=== PATIENT | female | born 1970 | race Caucasian/White ===

== ENCOUNTER 2017-09-14 16:14 | Emergency (ER) | payer OTHER ==
[2017-09-14 18:45] VITALS: BP 154/80
--- NOTE | 2017-09-14 19:01 | UC ---
Back Pain HPI - HPI Summary HPI Summary: DID A NEW WORKOUT ROUTINE SEVERAL DAYS AGO THEN DEVELOPED RIGHT LOW BACK PAIN RADIATING DOWN FRONT OF RIGHT LEG. PAIN IS BETTER BUT NOW HAS PROGRESSIVE NUMBNESS IN RIGHT INGUINAL REGION. NO LOSS OF BOWEL OR BLADDER CONTROL. DENIES WEAKNESS. - History of Current Complaint Chief Complaint: UCBackPain Stated Complaint: HIP AND BACK PAIN Time Seen by Provider: 09/14/17 18:44 Hx Obtained From: Patient Hx Last Menstrual Period: 12/23/13 Onset/Duration: Gradual Onset, Lasting Days, Still Present Timing: Constant Severity Initially: Moderate Severity Currently: Moderate Pain Intensity: 3 Pain Scale Used: 0-10 Numeric Back Pain: Is Discrete @ - RIGHT LOW BACK Character: Sharp Aggravating Factor(s): Movement Alleviating Factor(s): Nothing Associated Signs And Symptoms: Positive: Numbness. Negative: Bladder Incontinence, Bowel Incontinence - Allergies/Home Medications Allergies/Adverse Reactions: Allergies Allergy/AdvReac Type Severity Reaction Status Date / Time No Known Allergies Allergy Verified 09/14/17 18:41 Home Medications: Home Medications Ibuprofen TAB* [Advil TAB*] 400 mg PO DAILY 09/14/17 [History Confirmed 09/14/17 ] PMH/Surg Hx/FS Hx/Imm Hx Previously Healthy: Yes - Surgical History Surgical History: None Surgery Procedure, Year, and Place: LASER CERVICAL PROCEDURE - Family History Known Family History: Positive: Hypertension - Social History Alcohol Use: Occasionally Substance Use Type: None Smoking Status (MU): Never Smoked Tobacco Review of Systems Constitutional: Negative Skin: Negative Respiratory: Negative Cardiovascular: Negative Gastrointestinal: Negative Genitourinary: Negative Musculoskeletal: Myalgia Neurological: Numbness All Other Systems Reviewed And Are Negative: Yes Physical Exam Triage Information Reviewed: Yes Appearance: Well-Appearing, Well-Nourished, Pain Distress - MOD Vital Signs: Initial Vital Signs Temp 99.1 F 09/14/17 18:42 Pulse 78 09/14/17 18:42 Resp 16 09/14/17 18:42 BP 154/80 09/14/17 18:42 Pulse Ox 100 09/14/17 18:42 Vital Signs Reviewed: Yes Eyes: Positive: Conjunctiva Clear ENT: Positive: Hearing grossly normal Neck: Positive: Supple Respiratory: Positive: No respiratory distress, No accessory muscle use Cardiovascular: Positive: Pulses Normal Abdomen Description: Positive: Soft Musculoskeletal: Positive: No Edema Neurological: Positive: Alert, Other: - NO FOOT DROP, 5/5 STRENGTH Psychological: Positive: Age Appropriate Behavior Skin: Negative: rashes Back Pain Course/Dx - Course Course Of Treatment: GIVEN PT REPORT OF PROGRESSIVE NUMBNESS IN RIGHT INGUINAL REGION AND RIGHT LOW BACK PAIN FOLLOWING UNUSUAL PHYSICAL ACTIVITY HAVE ADVISED ER FOR FURTHER EVALUATION. - Differential Dx/Diagnosis Provider Diagnoses: LOW BACK PAIN/RADICULOPATHY Discharge - Discharge Plan Condition: Stable Disposition: OTHER Discharge Disposition Comment[place] [facility] [place] Patient Education Materials: Low Back Strain (ED), Lumbar Radiculopathy (ED) Referrals: Akiko Cyr MD [Primary Care Provider] - If Needed Additional Instructions: CONCERN FOR DANGEROUS IMPINGEMENT OF LUMBAR SPINAL NERVES GIVEN YOUR PROGRESSIVE NUMBNESS IN THE INGUINAL REGION. GO DIRECTLY TO THE ER FROM HERE FOR FURTHER EVALUATION.
== END 2017-09-14 19:13 ==
LOC: UCEAST 16:14
DX: M54.5 Low back pain (principal); M54.10 Radiculopathy, site unspecified
CPT/HCPCS: 99201; G0463

== ENCOUNTER → 2017-09-14 19:25 | Emergency (ER) | payer OTHER ==
[~2017-09-14 19:25] MED LIST: Cyclobenzaprine TAB* 10 MG PO ONE; Ibuprofen TAB* 600 MG ONE; Ibuprofen TAB* 600 MG PO ONE
[2017-09-14 19:31] VITALS: BP 175/103
--- NOTE | 2017-09-14 20:55 | ED ---
Back Pain - HPI Summary HPI Summary: 47F presents with back pain for a couple days. It started after she did some stretching. She states over the past two days she developed pain into the right leg but today developed numbness into inguinal area on right side. no loss of bowel or bladder control. no weakness. has been taking advil with some relief. no fever. no history of IV drug use. no instability with walking. numbness is only on the right side of groin. She was seen at and transferred here. nothing makes it worst. advil makes it better. She denies any history of back pain. She is being follow up her primary who was going to give a referral to PT. - History of Current Complaint Chief Complaint: EDBackInjuryPain Stated Complaint: RT BACK AND HIP PAIN Time Seen by Provider: 09/14/17 20:26 Hx Last Menstrual Period: 12/23/13 Pain Intensity: 4 - Allergies/Home Medications Allergies/Adverse Reactions: Allergies Allergy/AdvReac Type Severity Reaction Status Date / Time No Known Allergies Allergy Verified 09/14/17 18:41 PMH/Surg Hx/FS Hx/Imm Hx Endocrine/Hematology History: Denies: Hx Diabetes, Hx Thyroid Disease Cardiovascular History: Denies: Hx Hypertension, Hx Pacemaker/ICD Respiratory History: Denies: Hx Asthma, Hx Chronic Obstructive Pulmonary Disease (COPD) GI History: Denies: Hx Ulcer Sensory History: Denies: Hx Hearing Aid Psychiatric History: Denies: Hx Panic Disorder - Surgical History Surgery Procedure, Year, and Place: LASER CERVICAL PROCEDURE - Immunization History Date of Tetanus Vaccine: unknown Date of Influenza Vaccine: no Infectious Disease History: No Infectious Disease History: Denies: Hx Clostridium Difficile, Hx Hepatitis - in past after mono diagnosis , Hx Human Immunodeficiency Virus (HIV), Hx of Known/Suspected MRSA, Hx Shingles , Hx Tuberculosis, Hx Known/Suspected VRE, Hx Known/Suspected VRSA, History Other Infectious Disease, Traveled Outside the [place] in Last 30 Days - Family History Known Family History: Positive: Hypertension - Social History Alcohol Use: Occasionally Substance Use Type: Reports: None Smoking Status (MU): Never Smoked Tobacco Review of Systems Negative: Fever Negative: Chest Pain Negative: Shortness Of Breath Negative: incontinence Positive: Myalgia - back pain All Other Systems Reviewed And Are Negative: Yes Physical Exam Triage Information Reviewed: Yes Vital Signs On Initial Exam: Initial Vitals Temp Pulse Resp BP Pulse Ox 98.6 F 80 16 175/103 100 09/14/17 19:28 09/14/17 19:28 09/14/17 19:28 09/14/17 19:28 09/14/17 19:28 Vital Signs Reviewed: Yes Appearance: Positive: Well-Appearing Skin: Positive: Warm, Dry Head/Face: Positive: Normal Head/Face Inspection Eyes: Positive: Normal, Conjunctiva Clear Respiratory/Lung Sounds: Positive: Clear to Auscultation, Breath Sounds Present Cardiovascular: Positive: Normal, RRR Musculoskeletal: Positive: Strength/ROM Intact - back, legs, Other - good pulses , neg SLR, tenderness lower back, sensation grossly intact Neurological: Positive: Reflexes Intact - patella, achilles, Normal Gait, Other - able to heel and toe walk. Negative: Babinski Bilateral - neg Psychiatric: Positive: Normal - [place] Coma Scale Coma Scale Total: 15 Diagnostics - Vital Signs Vital Signs Temp Pulse Resp BP Pulse Ox 09/14/17 19:28 98.6 F 80 16 175/103 100 - Laboratory Lab Statement: Any lab studies that have been ordered have been reviewed, and results considered in the medical decision making process. - CT back CT Interpretation: No Acute Changes - IMPRESSION: NO ACUTE CT FINDINGS. MINOR CIRCUMFERENTIAL BULGING AT THE LOWER [address] Interpretation Completed By: Radiologist Back Pain Course/Dx - Course Course Of Treatment: 47F presents with back pain for a couple days. It started after she did some stretching. She states over the past two days she developed pain into the right leg but today developed numbness into inguinal area on right side. no loss of bowel or bladder control. no weakness. has been taking advil with some relief. no fever. no history of IV drug use. no instability with walking. numbness is only on the right side of groin. She was seen at and transferred here. nothing makes it worst. advil makes it better. She denies any history of back pain. She is being follow up her primary who was going to give a referral to PT. on exam tenderness lower back. neg SLR, good pulses, neg babskini. patella and achiles intact. sensation grossly intact. patient refused rectal. patient refused MRI even after discussion of benefits. CT no acute findings. patient understand and agrees with plan. - Diagnoses Provider Diagnoses: Back pain Discharge - Discharge Plan Condition: Good Disposition: HOME Prescriptions: Cyclobenzaprine TAB* [Flexeril 10 MG TAB*] 10 mg PO TID PRN #15 tab PRN Reason: Pain Patient Education Materials: Back Pain (ED) Referrals: Akiko Cyr MD [Primary Care Provider] - [facility] [place] [Medical Doctor] - Additional Instructions: Take muscle relaxers three times a day Use ibuprofen or Tylenol for pain every 6 hours ice/heat area, move as much as possible Follow up with primary within 5 days Return to ED if develop any new or worsening symptoms
--- NOTE | 2017-09-14 21:17 | RAD ---
INDICATION: Back pain COMPARISON: None TECHNIQUE: Noncontrast axial source images was performed from the thoracolumbar junction to the sacrum. Coronal and and sagittal reformatted images were generated. FINDINGS: Vertebrae: There is no fracture or acute focal bony lesion. Alignment: The lumbar vertebrae are normally aligned. Central Canal: There are no significant CT abnormalities of the central canal or foramina. MR imaging is a more sensitive method to evaluate the canal and foramina. Intervertebral disc spaces: The disc spaces are maintained. There is minor circumferential bulging at the lower 3 lumbar levels. Soft tissues: The paravertebral soft tissues are normal. Other: None IMPRESSION: NO ACUTE CT FINDINGS. MINOR CIRCUMFERENTIAL BULGING AT THE LOWER 3 LUMBAR LEVELS
== END | disposition home or self-care (01) ==
LOC: ED 19:25
DX: M54.9 Dorsalgia, unspecified (principal)
CPT/HCPCS: 72131; 99282; A9270-GY

== ENCOUNTER 2018-08-08 10:45 | Emergency (ER) | payer BC, OTHER ==
--- NOTE | 2018-08-08 11:18 | ED ---
Abdominal Pain/Female - HPI Summary HPI Summary: Patient is a 48 y/o F w/ c/o LLQ abdominal pain onsetting last night at around 2200. Pain is described as sharp and is noted to radiate to chest and LUE intermittently and briefly. She also notes palpitations and some tingling/ numbness at LUE. Patient reports that when lying flat, abdominal pain is across her entire lower abdomen. Patient states that Sx resolved slightly today. However, as abdominal pain was still present, patient called convenient care and states they suggested she come to ED. In the room, patient states that she is not having chest pain. LLQ pain and LUE tingling is still present. However, she believes tingling could be due to anxiety. She reports some nausea last night, none presently. Fever, vomiting, diarrhea, dizziness, hematuria is denied. Patient reports no similar prior episodes. No PMHx of ulcers, diverticulitis. She denies past surgeries and medications, no Hx of colonoscopy. On triage, pain is rated 3/10, nothing is noted to aggravate/ alleviate Sx. Home medications and allergies are reviewed. - History of Current Complaint Chief Complaint: EDAbdPain Stated Complaint: ABD PAIN Time Seen by Provider: 08/08/18 11:05 Hx Obtained From: Patient Hx Last Menstrual Period: 12/23/13 Onset/Duration: Lasting Days - last night onset, Still Present Timing: Constant Severity Initially: Moderate Severity Currently: Mild - 3/10 Pain Intensity: 3 Pain Scale Used: 0-10 Numeric - 3/10 Location: Discrete At: LLQ Radiates: Yes Radiates to: RLQ - when lying down, Chest, Other - LUE Character: Sharp Aggravating Factor(s): Other: - lying flat causes pain across entire lower abdomen Alleviating Factor(s): Nothing Associated Signs and Symptoms: Positive: Nausea, Other: - POSITIVE: palpitations , chest pain, LUE pain intermittently, LUE numbness/tingling. Negative: Fever, Dizzy, Urinary Symptoms - no hematuria, Vomiting, Diarrhea Allergies/Adverse Reactions: Allergies Allergy/AdvReac Type Severity Reaction Status Date / Time No Known Allergies Allergy Verified 08/08/18 11:00 PMH/Surg Hx/FS Hx/Imm Hx Endocrine/Hematology History: Denies: Hx Diabetes, Hx Thyroid Disease Cardiovascular History: Denies: Hx Hypertension, Hx Pacemaker/ICD Respiratory History: Denies: Hx Asthma, Hx Chronic Obstructive Pulmonary Disease (COPD) GI History: Denies: Hx Ulcer Sensory History: Denies: Hx Hearing Aid Psychiatric History: Denies: Hx Panic Disorder - Surgical History Surgery Procedure, Year, and Place: LASER CERVICAL PROCEDURE - Immunization History Date of Tetanus Vaccine: unknown Date of Influenza Vaccine: no Infectious Disease History: No Infectious Disease History: Denies: Hx Clostridium Difficile, Hx Hepatitis - in past after mono diagnosis , Hx Human Immunodeficiency Virus (HIV), Hx of Known/Suspected MRSA, Hx Shingles , Hx Tuberculosis, Hx Known/Suspected VRE, Hx Known/Suspected VRSA, History Other Infectious Disease, Traveled Outside the [place] in Last 30 Days - Family History Known Family History: Positive: Hypertension - Social History Alcohol Use: Occasionally Substance Use Type: Reports: None Smoking Status (MU): Never Smoked Tobacco Review of Systems Negative: Fever Positive: Palpitations, Chest Pain Positive: Abdominal Pain, Nausea. Negative: Vomiting, Diarrhea Negative: hematuria Positive: Other - POSITIVE: LUE pain Neurological: Other - NEGATIVE: dizziness Positive: Numbness - LUE, tingling as well All Other Systems Reviewed And Are Negative: Yes Physical Exam - Summary Physical Exam Summary: Appearance: Well-appearing, Well-nourished, lying in bed comfortably Skin: Warm, dry, no obvious rash Eyes: sclera anicteric, no conjunctival pallor ENT: mucous membranes moist, pharynx appears normal Neck: Supple, nontender Respiratory: Clear to auscultation, no signs of respiratory distress Cardiovascular: Normal S1, S2. No murmurs. Normal distal pulses in tibial and radial bilaterally. Abdomen: Soft, nontender, normal active bowel sounds present Musculoskeletal: Normal, Strength/ROM Intact Neurological: A&Ox3, awake and alert, mentation is normal, speech is fluent and appropriate Psychiatric: affect is normal, does not appear anxious or depressed Triage Information Reviewed: Yes Vital Signs On Initial Exam: Initial Vitals Temp Pulse Resp BP Pulse Ox 98.7 F 84 16 155/106 99 08/08/18 10:57 08/08/18 10:57 08/08/18 10:57 08/08/18 10:57 08/08/18 10:57 Vital Signs Reviewed: Yes Diagnostics - Vital Signs Vital Signs Temp Pulse Resp BP Pulse Ox 08/08/18 10:57 98.7 F 84 16 155/106 99 - Laboratory Result Diagrams: 08/08/18 11:24 08/08/18 11:24 Lab Statement: Any lab studies that have been ordered have been reviewed, and results considered in the medical decision making process. - EKG 1126 Cardiac Rate: NL - rate of 75 bpm EKG Rhythm: Sinus Rhythm Summary of EKG Findings: NSR at 75 BPM, P waves, QRS complex, and T waves are within normal limits, T waves and intervals are normal, no ischemic changes. This is a normal EKG. Re-Evaluation - Re-Evaluation First Eval Re-Evaluation Time: 12:09 Comment: I explained that the patient's symptoms are not pointing towards a specific diagnosis and that her lab studies were unremarkable, she is comfortable with discharge, and understands if her symptoms progress or worsen she needs to come back or see her own doctor. Abdominal Pain Fem Course/Dx - Course Course Of Treatment: Patient is a 48 y/o F w/ c/o LLQ abdominal pain onsetting last night at around 2200. Pain is described as sharp and is noted to radiate to chest and LUE intermittently and briefly. She also notes palpitations and some tingling/numbness at LUE. Patient reports that when lying flat, abdominal pain is across her entire lower abdomen. Patient states that Sx resolved slightly today. However, as abdominal pain was still present, patient called convenient care and states they suggested she come to ED. In the room, patient states that she is not having chest pain. LLQ pain and LUE tingling is still present. However, she believes tingling could be due to anxiety. She reports some nausea last night, none presently. Fever, vomiting, diarrhea, dizziness, hematuria is denied. Patient reports no similar prior episodes. No PMHx of ulcers, diverticulitis. She denies past surgeries and medications, no Hx of colonoscopy. Physical exam is unremarkable. EKG showed NSR at 75 BPM, P waves, QRS complex, and T waves are within normal limits, T waves and intervals are normal, no ischemic changes. This is a normal EKG. awaiting urinalysis, remainder of workup is unremarkable. I explained that the patient's symptoms are not pointing towards a specific diagnosis and that her lab studies were unremarkable, she is comfortable with discharge, and understands if her symptoms progress or worsen she needs to come back or see her own doctor. UA was negative, patient discharged to home. Dx of acute abdominal pain. - Diagnoses Provider Diagnoses: Acute abdominal pain Discharge - Sign-Out/Discharge Documenting (check all that apply): Patient Departure - discharge - Discharge Plan Condition: Stable Disposition: HOME Patient Education Materials: Acute Abdominal Pain (ED) Referrals: Akiko Cyr MD [Primary Care Provider] - 2 Days (if not improving) - Attestation Statements Document Initiated by Scribe: Yes Documenting Scribe: Bruno Robles Provider For Whom Scribe is Documenting (Include Credential): Severo Shipman MD Scribe Attestation: IBruno , scribed for Severo Shipman MD on 08/08/18 at [facility].
[2018-08-08 11:38] LABS: ABS Basophils 0.1 10^3/ul (0-0.2); ABS Eosinophils 0 10^3/ul (0-0.6); ABS Monocytes 0.6 10^3/ul (0-0.8); ABS Neutrophils 6.1 10^3/ul (1.5-7.7); ABS Nucleated RBC 0 10^3/ul; Eosinophil % 0.3 % (0-6); Hematocrit 42 % (35-47); Hemoglobin 14.3 g/dl (12.0-16.0); Lymphocyte % 22.6 % (25-47); Mean Corpuscular HGB Conc 35 g/dl (31-36); Mean Corpuscular Hemoglobin 30 pg (27-31); Mean Corpuscular Volume 87 fL (80-97); Mean Platelet Volume 7.9 fL (7.4-10.4); Nucleated Red Blood Cells % 0.1; Platelet Count 287 10^3/ul (150-450); Red Blood Count 4.77 10^6/ul (4.00-5.40); Red Cell Distribution Width 13 % (10.5-15); White Blood Count 8.8 10^3/ul (3.5-10.8)
[2018-08-08 11:55] LABS: EGFR Non-African American 96.5 (>60)
[2018-08-08 12:34] LABS: Urine Appearance Clear; Urine Blood Negative (Negative); Urine Color Colorless; Urine Ketones Negative (Negative); Urine Protein Negative (Negative); Urine Specific Gravity 1.002 (1.010-1.030); Urine Urobilinogen Negative (Negative)
[2018-08-08 12:56] VITALS: BP 147/91
== END 2018-08-08 12:56 | disposition home or self-care (01) ==
LOC: ED 10:45
DX: R10.32 Left lower quadrant pain (principal)
CPT/HCPCS: 36415; 80053; 81003; 84484; 85025; 85379; 93005; 99282